=== PATIENT | female | born 1955 | race Caucasian/White ===

== ENCOUNTER → 2017-06-05 | Outpatient (CLI) | payer OTHER | END | disposition home or self-care (01) | LOC: CFH 07:35 | PROVIDERS: ATTEND Physician Assistant | DX: R16.1 Splenomegaly, not elsewhere classified (principal); K80.20 Calculus of gallbladder without cholecystitis without obstruction; N32.89 Other specified disorders of bladder | CPT/HCPCS: 76700 ==

== ENCOUNTER → 2017-08-14 | Outpatient (CLI) | payer OTHER ==
[~2017-08-14] MED LIST: BENA20TA2 PO; BUDE10.2 PO; CYCL-259 PO; HYDR-3240 PO; TRAZ50TA18 PO
[2017-08-14 16:41] LABS: HEMATOCRIT 42.3 % (34.6-47.8); HEMOGLOBIN 14.6 g/dL (11.7-16.4); WHITE BLOOD COUNT 4.3 x10^3/uL (3.4-10)
[2017-08-14 16:48] LABS: BLOOD UREA NITROGEN 16 mg/dL (7-18)
[2017-08-14 16:51] LABS: ASPARTATE AMINO TRANSFERASE 22 U/L (15-37)
== END | disposition home or self-care (01) ==
LOC: STAR 15:38
PROVIDERS: ATTEND Orthopaedic Surgery
DX: Z01.818 Encounter for other preprocedural examination (principal); M17.12 Unilateral primary osteoarthritis, left knee; R79.1 Abnormal coagulation profile
CPT/HCPCS: 36415; 80053; 83036; 85025; 85610; 85730; 87081; 87147; 93005

== ENCOUNTER 2020-11-19 09:37 | Inpatient (IN) | payer OTHER ==
[~2020-11-19] VITALS: Ht 170.2 cm; Wt 112.0 kg
[~2020-11-19 09:37] MED LIST changes: +ASPI-496 PO; -BENA20TA2 PO; +BENA20TA54 PO; -CYCL-259 PO; +CYCL10TA2 PO; +HYDR-1067 PO; -HYDR-3240 PO; +MELO7.5T31 PO; +ONDA4TAB7 PO; +OXYC5CAP2 PO; +TRAM50TA2 PO; -TRAZ50TA18 PO; +TRAZ50TA66 PO
[2020-11-19] MEDS ORDERED: SODIUM CHLORIDE 0.9% 1,000 ML IV ONE (10:30)
--- NOTE | 2020-11-19 10:51 | NUR ---
US AT BEDSIDE
[2020-11-19 11:04] LABS: BASOPHILS % (AUTO) 1 % (0-1); EOSINOPHILS % (AUTO) 4 % (1-7); LYMPHOCYTES % (AUTO) 6 % (22-44); MEAN CORPUSCULAR HEMOGLOBIN 30.8 pg (27.0-34.8); MEAN CORPUSCULAR HGB CONC 33.2 g/dL (32.4-35.8); MEAN PLATELET VOLUME 7.5 fL (7.4-10.4); MONOCYTES % (AUTO) 10 % (2-9); NEUTROPHILS % (AUTO) 79 % (42-75); PLATELET COUNT 161 x10^3/uL (130-400); RED BLOOD COUNT 2.42 x10^6/uL (3.82-5.3); RED CELL DISTRIBUTION WIDTH 15.2 % (9.6-15.2)
[2020-11-19 11:16] LABS: ALBUMIN 3.1 g/dL (3.4-5.0); ANION GAP 10 mmol/L (5-15); CALCIUM 8.3 mg/dL (8.5-10.1); CHLORIDE 115 mmol/L (98-107)
--- NOTE | 2020-11-19 11:16 | NUR ---
CRITICAL LAB: HEMATOCRIT 22.5
[2020-11-19 11:19] LABS: MD NO
[2020-11-19 11:23] LABS: ALANINE AMINOTRANSFERASE 9 U/L (12-78); ALKALINE PHOSPHATASE 53 U/L (45-117); BILIRUBIN,TOTAL 0.2 mg/dL (0.2-1.0); CREATININE 7.88 mg/dL (0.55-1.02); TOTAL PROTEIN 7.1 g/dL (6.4-8.2); TROPONIN I 0.082 ng/mL (0.000-0.045)
[2020-11-19 11:32] LABS: MICROSCOPIC NOT IND
[2020-11-19] MEDS ORDERED: SODIUM CHLORIDE FLUSH 10ML SYR IVF ONE (13:00)
[2020-11-19] MEDS ORDERED: CEFTRIAXONE PMX 1GM/50ML 50 ML IV ONE (13:00)
[2020-11-19] MEDS ORDERED: SODIUM BICARB 8.4%, 50ML SYRINGE IVPush ONE (13:00)
[2020-11-19] MEDS ORDERED: AZITHROMYCIN 500 MG in SODIUM CHLORIDE 0.9% 250 ML IV ONE (13:00)
[2020-11-19] MEDS ORDERED: ALBUTEROL 0.5%, 20ML NPPB ONE (13:00)
[2020-11-19] MEDS ORDERED: SODIUM ZIRCONIUM CYCLOSILICATE 10 GM PO ONE (13:00)
[2020-11-19] MEDS ORDERED: INSULIN REGULAR 100 UNITS/ML, 3ML VIAL IVPush ONE (13:00)
[2020-11-19] MEDS ORDERED: DEXTROSE 50%, 50ML SYRINGE IVPush ONE (13:00)
[2020-11-19] MEDS ORDERED: CEFTRIAXONE PMX 1GM/50ML 50 ML ONE (13:09)
[2020-11-19] MEDS ORDERED: INSULIN SINGLE DOSE, ER ONE (13:10)
[2020-11-19] MEDS ORDERED: ALBUTEROL SULFATE 2.5 MG/3 ML ONE (13:10)
[2020-11-19] MEDS ORDERED: DEXTROSE 50%, 50ML SYRINGE ONE (13:10)
[2020-11-19] MEDS ORDERED: SODIUM BICARB 8.4%, 50ML SYRINGE ONE (13:11)
--- NOTE | 2020-11-19 13:24 | NUR ---
PER DR. LOUIE, BLOOD CULTURES NOT NEEDED PRIOR TO INITIATION OF ANTIBIOTIC TX.
--- NOTE | 2020-11-19 13:39 | NUR ---
Piotr requested from pharmacy. Pt to CT at this time via gurney, then will be up to floor with vascular technologist. Meds will be tubed to receiving floor.
[2020-11-19] MEDS ORDERED: ACETAMINOPHEN 325 MG TABLET PO PRN (14:00)
[2020-11-19] MEDS ORDERED: ENALAPRILAT 1.25 MG/ML, 2ML IVPush PRN (14:00)
[2020-11-19] MEDS ORDERED: ONDANSETRON ODT 4 MG PO PRN (14:00)
[2020-11-19] MEDS ORDERED: morphine SULFATE 10 MG/ML, 1ML IVPush PRN (14:00)
[2020-11-19] MEDS ORDERED: ONDANSETRON 2MG/ML, 2ML IVPush PRN (14:00)
[2020-11-19 15:33] VITALS: BP 157/82
[2020-11-19 15:58] LABS: ABSOLUTE RETICS # 0.043 x10^6/uL (0.5-2.5); RED BLOOD COUNT 2.16 x10^6/uL (3.82-5.3); RETICULOCYTE COUNT % 1.99 % (0.5-1.5)
[2020-11-19 16:02] LABS: CALCIUM 7.8 mg/dL (8.5-10.1)
[2020-11-19] MEDS ORDERED: TAMS-11 PO (18:28)
[2020-11-19] MEDS ORDERED: HYDR-3237 PO (18:28)
[2020-11-19] MEDS ORDERED: TRAZ-96 PO (18:28)
[2020-11-19] MEDS ORDERED: AMLO-210 PO (18:28)
[2020-11-19] MEDS ORDERED: CARV12.52 PO (18:28)
[2020-11-19 18:39] LABS: MICROSCOPIC AUTO
[2020-11-19 18:42] LABS: CHLORIDE,URINE RANDOM 52 mmol/L; POTASSIUM,URINE RANDOM 13 mmol/L; SODIUM,URINE RANDOM 58 mmol/L
[2020-11-19 18:50] VITALS: BP 114/74
[2020-11-19] MEDS ORDERED: MIDAZOLAM 1 MG/ML, 5ML ONE (19:16)
[2020-11-19] MEDS ORDERED: NALOXONE 1 MG/ML, 2ML ONE (19:16)
[2020-11-19] MEDS ORDERED: FLUMAZENIL 0.1 MG/1 ML, 5ML ONE (19:16)
[2020-11-19] MEDS ORDERED: FENTANYL PF 100 MCG/2ML ONE (19:16)
[2020-11-19] MEDS ORDERED: LIDOCAINE 1%, 10ML ONE (19:17)
[2020-11-19] MEDS ORDERED: LIDOCAINE 1%, 20ML ONE (19:44)
[2020-11-19] MEDS ORDERED: VISIPAQUE 320MG/ML, 50ML BOTTLE ONE (20:03)
[2020-11-20 01:04] VITALS: BP 125/86
[2020-11-20 05:22] LABS: BASOPHILS % (AUTO) 1 % (0-1); EOSINOPHILS % (AUTO) 4 % (1-7); LYMPHOCYTES % (AUTO) 6 % (22-44); MEAN CORPUSCULAR HEMOGLOBIN 31.1 pg (27.0-34.8); MEAN CORPUSCULAR HGB CONC 33.3 g/dL (32.4-35.8); MEAN PLATELET VOLUME 7.5 fL (7.4-10.4); MONOCYTES % (AUTO) 11 % (2-9); NEUTROPHILS % (AUTO) 78 % (42-75); PLATELET COUNT 162 x10^3/uL (130-400); RED BLOOD COUNT 2.39 x10^6/uL (3.82-5.3)
[2020-11-20 05:25] LABS: MD NO
[2020-11-20 05:32] LABS: CHLORIDE 116 mmol/L (98-107)
[2020-11-20 05:38] LABS: ALANINE AMINOTRANSFERASE 9 U/L (12-78); ALBUMIN 2.8 g/dL (3.4-5.0); ALKALINE PHOSPHATASE 52 U/L (45-117); ANION GAP 7 mmol/L (5-15); BILIRUBIN,TOTAL 0.2 mg/dL (0.2-1.0); CREATININE 6.69 mg/dL (0.55-1.02); TOTAL PROTEIN 6.4 g/dL (6.4-8.2)
[2020-11-20 07:44] VITALS: BP 137/81
[2020-11-20] MEDS: IRON SUCROSE COMPLEX 100MG/5ML IV SCH (11:25)
[2020-11-20] MEDS: FLUTICASONE/VILANTEROL 200-25MCG/INH INH SCH (12:00)
[2020-11-20 12:45] VITALS: BP 156/84
[2020-11-20] MEDS: HYDROcodone/APAP 5/325 TABLET PO PRN ×2 (12:58→21:05)
[2020-11-20 20:24] VITALS: BP 155/81
[2020-11-20] MEDS: SODIUM BICARBONATE 650 MG TABLET PO SCH (21:01)
[2020-11-21] MEDS ORDERED: LACTATED RINGERS 500 ML IVBOLUS ONE
[2020-11-21 02:36] VITALS: BP 161/85
[2020-11-21 05:49] LABS: BASOPHILS % (AUTO) 1 % (0-1); EOSINOPHILS % (AUTO) 4 % (1-7); LYMPHOCYTES % (AUTO) 6 % (22-44); MEAN CORPUSCULAR HEMOGLOBIN 31.2 pg (27.0-34.8); MEAN CORPUSCULAR HGB CONC 33.4 g/dL (32.4-35.8); MEAN PLATELET VOLUME 7.5 fL (7.4-10.4); MONOCYTES % (AUTO) 12 % (2-9); NEUTROPHILS % (AUTO) 78 % (42-75); PLATELET COUNT 160 x10^3/uL (130-400); RED BLOOD COUNT 2.51 x10^6/uL (3.82-5.3); RED CELL DISTRIBUTION WIDTH 15.3 % (9.6-15.2)
[2020-11-21 05:53] LABS: MD NO
[2020-11-21 05:57] LABS: ALBUMIN 2.9 g/dL (3.4-5.0); ANION GAP 6 mmol/L (5-15); CALCIUM 8.5 mg/dL (8.5-10.1); CHLORIDE 110 mmol/L (98-107)
[2020-11-21 06:01] LABS: ALANINE AMINOTRANSFERASE 9 U/L (12-78); ALKALINE PHOSPHATASE 53 U/L (45-117); BILIRUBIN,TOTAL 0.2 mg/dL (0.2-1.0); CREATININE 5.72 mg/dL (0.55-1.02); TOTAL PROTEIN 6.8 g/dL (6.4-8.2)
[2020-11-21] MEDS: SODIUM BICARBONATE 650 MG TABLET PO SCH ×2 (08:22→19:58)
[2020-11-21] MEDS: HYDROcodone/APAP 5/325 TABLET PO PRN ×2 (08:22→19:58)
[2020-11-21] MEDS: SODIUM CHLORIDE 0.45% 1,000 ML IV SCH ×2 (08:23→18:26)
[2020-11-21 08:30] VITALS: BP 147/87
[2020-11-21] MEDS: FLUTICASONE/VILANTEROL 200-25MCG/INH INH SCH (08:41)
[2020-11-21] MEDS ORDERED: FUROSEMIDE 40 MG/4 ML IV ONE (09:00)
[2020-11-21] MEDS: ERGOCALCIFEROL 50,000 UNIT CAPSULE PO SCH (09:32)
[2020-11-21] MEDS: SODIUM ZIRCONIUM CYCLOSILICATE 5 GM PO SCH ×3 (11:42→23:27)
[2020-11-21 13:10] VITALS: BP 128/83
[2020-11-21 14:07] LABS: ANION GAP 5 mmol/L (5-15); CALCIUM 8.3 mg/dL (8.5-10.1); CHLORIDE 109 mmol/L (98-107); CREATININE 5.65 mg/dL (0.55-1.02)
[2020-11-21 19:30] VITALS: BP 144/83
[2020-11-22 01:38] VITALS: BP 145/83
[2020-11-22] MEDS: ALBUTEROL HFA 90 MCG/SPRAY INH PRN (02:38)
[2020-11-22] MEDS: SODIUM CHLORIDE 0.45% 1,000 ML IV SCH ×2 (04:54→14:59)
[2020-11-22 05:25] LABS: BASOPHILS % (AUTO) 1 % (0-1); EOSINOPHILS % (AUTO) 6 % (1-7); LYMPHOCYTES % (AUTO) 8 % (22-44); MEAN CORPUSCULAR HEMOGLOBIN 31.4 pg (27.0-34.8); MEAN CORPUSCULAR HGB CONC 33.9 g/dL (32.4-35.8); MEAN PLATELET VOLUME 7.4 fL (7.4-10.4); MONOCYTES % (AUTO) 10 % (2-9); NEUTROPHILS % (AUTO) 75 % (42-75); PLATELET COUNT 164 x10^3/uL (130-400); RED BLOOD COUNT 2.47 x10^6/uL (3.82-5.3)
[2020-11-22 05:31] LABS: ALBUMIN 2.9 g/dL (3.4-5.0); CALCIUM 8.1 mg/dL (8.5-10.1); CHLORIDE 108 mmol/L (98-107)
[2020-11-22 05:36] LABS: ALANINE AMINOTRANSFERASE 7 U/L (12-78); ALKALINE PHOSPHATASE 54 U/L (45-117); ANION GAP 8 mmol/L (5-15); BILIRUBIN,TOTAL 0.2 mg/dL (0.2-1.0); CREATININE 4.81 mg/dL (0.55-1.02); TOTAL PROTEIN 6.8 g/dL (6.4-8.2)
[2020-11-22 05:43] LABS: MD NO
[2020-11-22] MEDS: FLUTICASONE/VILANTEROL 200-25MCG/INH INH SCH (08:00)
[2020-11-22] MEDS: SODIUM ZIRCONIUM CYCLOSILICATE 5 GM PO SCH ×3 (08:04→22:57)
[2020-11-22] MEDS: SODIUM BICARBONATE 650 MG TABLET PO SCH ×2 (08:05→20:39)
[2020-11-22] MEDS: IRON SUCROSE COMPLEX 100MG/5ML IV SCH (08:05)
[2020-11-22 08:09] VITALS: BP 159/87
[2020-11-22 12:15] VITALS: BP 150/92
[2020-11-22 19:09] VITALS: BP 147/80
[2020-11-22] MEDS: HYDROcodone/APAP 5/325 TABLET PO PRN (20:40)
[2020-11-23] MEDS: SODIUM CHLORIDE 0.45% 1,000 ML IV SCH ×3 (01:03→21:15)
[2020-11-23 02:00] VITALS: BP 143/76
[2020-11-23] MEDS: HYDROcodone/APAP 5/325 TABLET PO PRN (03:16)
[2020-11-23 05:35] LABS: ANION GAP 7 mmol/L (5-15); CALCIUM 7.5 mg/dL (8.5-10.1); CHLORIDE 108 mmol/L (98-107); CREATININE 4.14 mg/dL (0.55-1.02)
[2020-11-23] MEDS ORDERED: MAGNESIUM SULFATE PMX 2GM/50ML 50 ML IV ONE (07:30)
[2020-11-23 08:19] VITALS: BP 137/73
[2020-11-23] MEDS: SODIUM BICARBONATE 650 MG TABLET PO SCH ×2 (08:24→21:18)
[2020-11-23] MEDS: SODIUM ZIRCONIUM CYCLOSILICATE 5 GM PO SCH ×3 (08:24→22:59)
[2020-11-23] MEDS: FLUTICASONE/VILANTEROL 200-25MCG/INH INH SCH (09:00)
[2020-11-23 13:04] VITALS: BP 159/87
[2020-11-23 13:21] VITALS: BP 137/75
[2020-11-23] MEDS ORDERED: NALOXONE 1 MG/ML, 2ML ONE (18:10)
[2020-11-23] MEDS ORDERED: FENTANYL PF 100 MCG/2ML ONE (18:10)
[2020-11-23 19:33] VITALS: BP 164/83
[2020-11-23] MEDS: OXYBUTYNIN CHLORIDE 5 MG TABLET PO SCH (21:15)
[2020-11-24] MEDS: SODIUM CHLORIDE 0.45% 1,000 ML IV SCH ×2 (00:04→10:36)
[2020-11-24 00:59] VITALS: BP 151/73
[2020-11-24 05:36] LABS: BASOPHILS % (AUTO) 3 % (0-1); EOSINOPHILS % (AUTO) 5 % (1-7); LYMPHOCYTES % (AUTO) 11 % (22-44); MD NO; MEAN CORPUSCULAR HEMOGLOBIN 30.9 pg (27.0-34.8); MEAN CORPUSCULAR HGB CONC 33.8 g/dL (32.4-35.8); MEAN PLATELET VOLUME 7.2 fL (7.4-10.4); MONOCYTES % (AUTO) 12 % (2-9); NEUTROPHILS % (AUTO) 70 % (42-75); PLATELET COUNT 179 x10^3/uL (130-400); RED BLOOD COUNT 2.61 x10^6/uL (3.82-5.3); RED CELL DISTRIBUTION WIDTH 14.1 % (9.6-15.2)
[2020-11-24 05:45] LABS: ANION GAP 8 mmol/L (5-15); CALCIUM 8.3 mg/dL (8.5-10.1); CHLORIDE 110 mmol/L (98-107); CREATININE 3.64 mg/dL (0.55-1.02)
[2020-11-24 07:15] VITALS: BP 150/88
[2020-11-24] MEDS: FLUTICASONE/VILANTEROL 200-25MCG/INH INH SCH (07:49)
[2020-11-24] MEDS: HYDROcodone/APAP 5/325 TABLET PO PRN ×2 (08:09→21:08)
[2020-11-24] MEDS: OXYBUTYNIN CHLORIDE 5 MG TABLET PO SCH ×2 (08:13→21:06)
[2020-11-24] MEDS: SODIUM BICARBONATE 650 MG TABLET PO SCH ×2 (08:13→21:06)
[2020-11-24] MEDS: IRON SUCROSE COMPLEX 100MG/5ML IV SCH (08:13)
[2020-11-24] MEDS: ALBUTEROL HFA 90 MCG/SPRAY INH PRN (10:36)
[2020-11-24 12:08] VITALS: BP 153/84
[2020-11-24] MEDS: AMLODIPINE 2.5 MG TABLET PO SCH (12:43)
[2020-11-24] MEDS: methylPREDNISolone SOD SUCC 40 MG/ML IV SCH (17:24)
[2020-11-24] MEDS: CEFTRIAXONE PMX 1GM/50ML 50 ML IV SCH (17:24)
[2020-11-24 18:43] VITALS: BP 118/81
[2020-11-24] MEDS: DOXYCYCLINE 100MG TABLET PO SCH (21:08)
[2020-11-25] MEDS: methylPREDNISolone SOD SUCC 40 MG/ML IV SCH ×3 (00:16→16:41)
[2020-11-25] MEDS: SODIUM CHLORIDE 0.45% 1,000 ML IV SCH ×2 (00:17→10:51)
[2020-11-25 00:44] VITALS: BP 126/67
[2020-11-25 05:30] LABS: BASOPHILS % (AUTO) 1 % (0-1); EOSINOPHILS % (AUTO) 0 % (1-7); LYMPHOCYTES % (AUTO) 6 % (22-44); MEAN CORPUSCULAR HEMOGLOBIN 30.8 pg (27.0-34.8); MEAN CORPUSCULAR HGB CONC 33.5 g/dL (32.4-35.8); MEAN PLATELET VOLUME 7.2 fL (7.4-10.4); MONOCYTES % (AUTO) 4 % (2-9); NEUTROPHILS % (AUTO) 89 % (42-75); PLATELET COUNT 210 x10^3/uL (130-400); RED BLOOD COUNT 2.71 x10^6/uL (3.82-5.3); RED CELL DISTRIBUTION WIDTH 14.2 % (9.6-15.2)
[2020-11-25 05:33] LABS: MD NO
[2020-11-25 05:44] LABS: ANION GAP 7 mmol/L (5-15); CALCIUM 8.5 mg/dL (8.5-10.1); CHLORIDE 108 mmol/L (98-107); CREATININE 3.18 mg/dL (0.55-1.02)
[2020-11-25] MEDS: HYDROcodone/APAP 5/325 TABLET PO PRN ×2 (06:40→20:27)
[2020-11-25 07:35] VITALS: BP 151/84
[2020-11-25] MEDS: OXYBUTYNIN CHLORIDE 5 MG TABLET PO SCH ×2 (09:03→20:27)
[2020-11-25] MEDS: DOXYCYCLINE 100MG TABLET PO SCH ×2 (09:03→20:27)
[2020-11-25] MEDS: SODIUM BICARBONATE 650 MG TABLET PO SCH ×2 (09:03→20:27)
[2020-11-25] MEDS: AMLODIPINE 2.5 MG TABLET PO SCH (09:03)
[2020-11-25] MEDS: FLUTICASONE/VILANTEROL 200-25MCG/INH INH SCH (09:03)
[2020-11-25 13:39] VITALS: BP 129/81
[2020-11-25] MEDS: CEFTRIAXONE PMX 1GM/50ML 50 ML IV SCH (16:41)
[2020-11-25 20:15] VITALS: BP 133/83
[2020-11-26 00:39] VITALS: BP 148/83
[2020-11-26] MEDS: methylPREDNISolone SOD SUCC 40 MG/ML IV SCH ×3 (00:39→16:38)
[2020-11-26] MEDS: SODIUM CHLORIDE 0.45% 1,000 ML IV SCH ×2 (04:40→22:56)
[2020-11-26 05:51] LABS: ANION GAP 6 mmol/L (5-15); CALCIUM 8.5 mg/dL (8.5-10.1); CHLORIDE 108 mmol/L (98-107)
[2020-11-26 05:53] LABS: CREATININE 2.83 mg/dL (0.55-1.02)
[2020-11-26 05:54] LABS: BASOPHILS % (AUTO) 1 % (0-1); EOSINOPHILS % (AUTO) 0 % (1-7); LYMPHOCYTES % (AUTO) 5 % (22-44); MEAN CORPUSCULAR HGB CONC 34.1 g/dL (32.4-35.8); MEAN PLATELET VOLUME 7.7 fL (7.4-10.4); MONOCYTES % (AUTO) 4 % (2-9); NEUTROPHILS % (AUTO) 91 % (42-75); PLATELET COUNT 212 x10^3/uL (130-400); RED BLOOD COUNT 2.61 x10^6/uL (3.82-5.3)
[2020-11-26] MEDS: HYDROcodone/APAP 5/325 TABLET PO PRN ×2 (06:19→20:47)
[2020-11-26 06:44] LABS: MD SCAN
[2020-11-26 07:39] VITALS: BP 126/81
[2020-11-26] MEDS: FLUTICASONE/VILANTEROL 200-25MCG/INH INH SCH (09:00)
[2020-11-26] MEDS: AMLODIPINE 2.5 MG TABLET PO SCH (09:05)
[2020-11-26] MEDS: IRON SUCROSE COMPLEX 100MG/5ML IV SCH (09:05)
[2020-11-26] MEDS: OXYBUTYNIN CHLORIDE 5 MG TABLET PO SCH ×2 (09:05→20:47)
[2020-11-26] MEDS: DOXYCYCLINE 100MG TABLET PO SCH ×2 (09:06→20:47)
[2020-11-26] MEDS: SODIUM BICARBONATE 650 MG TABLET PO SCH ×2 (09:06→20:47)
[2020-11-26] MEDS ORDERED: MAGNESIUM SULFATE PMX 2GM/50ML 50 ML IV ONE (12:00)
[2020-11-26 15:17] VITALS: BP 143/80
[2020-11-26] MEDS: CEFTRIAXONE PMX 1GM/50ML 50 ML IV SCH (16:38)
[2020-11-26 19:02] VITALS: BP 129/85
[2020-11-27] VITALS (7 sets, daily range): BP systolic 119–180; BP diastolic 71–98
[2020-11-27] MEDS: methylPREDNISolone SOD SUCC 40 MG/ML IV SCH ×2 (00:20→08:31)
[2020-11-27 05:45] LABS: BASOPHILS % (AUTO) 1 % (0-1); EOSINOPHILS % (AUTO) 0 % (1-7); LYMPHOCYTES % (AUTO) 5 % (22-44); MEAN CORPUSCULAR HEMOGLOBIN 30.8 pg (27.0-34.8); MEAN CORPUSCULAR HGB CONC 33.6 g/dL (32.4-35.8); MEAN PLATELET VOLUME 7.3 fL (7.4-10.4); MONOCYTES % (AUTO) 6 % (2-9); NEUTROPHILS % (AUTO) 89 % (42-75); PLATELET COUNT 227 x10^3/uL (130-400); RED BLOOD COUNT 2.84 x10^6/uL (3.82-5.3); RED CELL DISTRIBUTION WIDTH 14.3 % (9.6-15.2)
[2020-11-27 05:51] LABS: MD NO
[2020-11-27 05:55] LABS: ANION GAP 6 mmol/L (5-15); CALCIUM 8.5 mg/dL (8.5-10.1); CHLORIDE 108 mmol/L (98-107); CREATININE 2.65 mg/dL (0.55-1.02)
[2020-11-27 05:56] LABS: ALBUMIN 2.8 g/dL (3.4-5.0)
[2020-11-27] MEDS: AMLODIPINE 2.5 MG TABLET PO SCH (08:31)
[2020-11-27] MEDS: DOXYCYCLINE 100MG TABLET PO SCH ×2 (08:31→20:14)
[2020-11-27] MEDS: SODIUM BICARBONATE 650 MG TABLET PO SCH ×2 (08:31→20:15)
[2020-11-27] MEDS: OXYBUTYNIN CHLORIDE 5 MG TABLET PO SCH ×2 (08:31→20:15)
[2020-11-27] MEDS: FLUTICASONE/VILANTEROL 200-25MCG/INH INH SCH (08:55)
[2020-11-27] MEDS: HYDROcodone/APAP 5/325 TABLET PO PRN ×2 (09:24→20:21)
[2020-11-27] MEDS: MAGNESIUM OXIDE 400 MG TABLET PO SCH ×2 (11:40→20:15)
[2020-11-27] MEDS: HEPARIN 5,000 UNITS/ML, 1ML SQ SCH (11:41)
[2020-11-27] MEDS: CEFTRIAXONE PMX 1GM/50ML 50 ML IV SCH (16:25)
[2020-11-28] MEDS: HEPARIN 5,000 UNITS/ML, 1ML SQ SCH ×2 (00:07→11:59)
[2020-11-28 00:22] VITALS: BP 155/78
[2020-11-28 05:36] LABS: BASOPHILS % (AUTO) 2 % (0-1); EOSINOPHILS % (AUTO) 3 % (1-7); LYMPHOCYTES % (AUTO) 15 % (22-44); MEAN CORPUSCULAR HEMOGLOBIN 30.8 pg (27.0-34.8); MEAN CORPUSCULAR HGB CONC 33.5 g/dL (32.4-35.8); MEAN PLATELET VOLUME 7.5 fL (7.4-10.4); MONOCYTES % (AUTO) 14 % (2-9); NEUTROPHILS % (AUTO) 66 % (42-75); PLATELET COUNT 239 x10^3/uL (130-400); RED BLOOD COUNT 3.03 x10^6/uL (3.82-5.3); RED CELL DISTRIBUTION WIDTH 14.5 % (9.6-15.2)
[2020-11-28 05:37] LABS: MD NO
[2020-11-28 05:41] LABS: CHLORIDE 107 mmol/L (98-107)
[2020-11-28 05:50] LABS: ALANINE AMINOTRANSFERASE 44 U/L (12-78); ALBUMIN 2.8 g/dL (3.4-5.0); ALKALINE PHOSPHATASE 47 U/L (45-117); ANION GAP 9 mmol/L (5-15); BILIRUBIN,TOTAL 0.2 mg/dL (0.2-1.0); CALCIUM 8.3 mg/dL (8.5-10.1); CREATININE 2.52 mg/dL (0.55-1.02); TOTAL PROTEIN 6.3 g/dL (6.4-8.2)
[2020-11-28 07:27] VITALS: BP 151/98
[2020-11-28] MEDS: MAGNESIUM OXIDE 400 MG TABLET PO SCH (08:17)
[2020-11-28] MEDS: OXYBUTYNIN CHLORIDE 5 MG TABLET PO SCH (08:17)
[2020-11-28] MEDS: DOXYCYCLINE 100MG TABLET PO SCH (08:18)
[2020-11-28] MEDS: SODIUM BICARBONATE 650 MG TABLET PO SCH (08:18)
[2020-11-28] MEDS: HYDROcodone/APAP 5/325 TABLET PO PRN (08:19)
[2020-11-28] MEDS ORDERED: AMLODIPINE 5 MG TABLET PO SCH (09:00)
[2020-11-28] MEDS ORDERED: methylPREDNISolone SOD SUCC 40 MG/ML IV SCH (09:00)
[2020-11-28] MEDS: FLUTICASONE/VILANTEROL 200-25MCG/INH INH SCH (09:02)
[2020-11-28] MEDS: ERGOCALCIFEROL 50,000 UNIT CAPSULE PO SCH (09:09)
[2020-11-28 12:04] VITALS: BP 151/89
[2020-11-28] MEDS ORDERED: ERGO500017 PO (12:53)
[2020-11-28] MEDS ORDERED: TRAZ50TA66 PO (12:53)
[2020-11-28] MEDS ORDERED: OXYB5TAB10 PO (12:53)
[2020-11-28] MEDS ORDERED: FLUT1BLS INH (12:53)
[2020-11-28] MEDS ORDERED: SODI650T PO (12:53)
[2020-11-28] MEDS ORDERED: DOXY100T PO (12:53)
[2020-11-28] MEDS ORDERED: CARV12.52 PO (12:53)
[2020-11-28] MEDS ORDERED: MAGN400T50 PO (12:53)
== END 2020-11-28 16:00 | disposition home health service (06) | DRG 698 ==
LOC: ED 12:04 → EDIP 12:42 → 4EST 14:13 → DCLOUNGE 11-28 15:46
PROVIDERS: ADMIT Hospitalist; ATTEND Internal Medicine
PROC: 0T9B30Z Drainage of Bladder with Drainage Device, Percutaneous Approach (ICD-10-PCS; principal; 2020-11-19)
PROC: BT101ZZ Fluoroscopy of Bladder using Low Osmolar Contrast (ICD-10-PCS; 2020-11-19)
PROC: BT40ZZZ Ultrasonography of Bladder (ICD-10-PCS; 2020-11-19)
PROC: BT40ZZZ Ultrasonography of Bladder (ICD-10-PCS; 2020-11-23)
PROC: 0TWBX0Z Revision of Drainage Device in Bladder, External Approach (ICD-10-PCS; 2020-11-23)
DX: N32.0 Bladder-neck obstruction (principal); J18.9 Pneumonia, unspecified organism; N17.9 Acute kidney failure, unspecified; N13.30 Unspecified hydronephrosis; E87.2 Acidosis; C95.90 Leukemia, unspecified not having achieved remission; J44.1 Chronic obstructive pulmonary disease with (acute) exacerbation; J44.0 Chronic obstructive pulmonary disease with (acute) lower respiratory infection; T83.030A Leakage of cystostomy catheter, initial encounter; N31.9 Neuromuscular dysfunction of bladder, unspecified; Y73.8 Miscellaneous gastroenterology and urology devices associated with adverse incidents, not elsewhere classified; Y92.238 Other place in hospital as the place of occurrence of the external cause; I12.9 Hypertensive chronic kidney disease with stage 1 through stage 4 chronic kidney disease, or unspecified chronic kidney disease; N18.9 Chronic kidney disease, unspecified; E55.9 Vitamin D deficiency, unspecified; Z66 Do not resuscitate; D50.9 Iron deficiency anemia, unspecified; E66.9 Obesity, unspecified; E87.5 Hyperkalemia; R00.0 Tachycardia, unspecified; Z96.652 Presence of left artificial knee joint; Z87.891 Personal history of nicotine dependence; Z80.1 Family history of malignant neoplasm of trachea, bronchus and lung; Z85.41 Personal history of malignant neoplasm of cervix uteri; Z90.49 Acquired absence of other specified parts of digestive tract; Z82.5 Family history of asthma and other chronic lower respiratory diseases; Z68.38 Body mass index [BMI] 38.0-38.9, adult; Z86.19 Personal history of other infectious and parasitic diseases
CPT/HCPCS: 36415; 75989; 76000; 96374; 99291; J3490; 51703; 71045; 71046; 74176; 76770; 80048; 80053; 80069; 81001; 81003; 82306; 82310; 82436; 82728; 83540; 83550; 83735; 83880; 83970; 84100; 84133; 84300; 84484; 85025; 85045; 93005; 94640; C1725; C1894; G0378; J0456; J0696; J1644; J1756; J1815; J1940; J2250; J2405; J3010; J7120; Q9967; C1769; J2310; J2920; J3475; J7030; J7050

== ENCOUNTER 2020-12-23 17:45 | Emergency (ER) | payer OTHER ==
[~2020-12-23] VITALS: Ht 170.2 cm; Wt 110.5 kg
[~2020-12-23 17:45] MED LIST changes: +AMLO-210 PO; +CARV12.52 PO; +DOXY100T PO; +ERGO500017 PO; +FLUT1BLS INH; -HYDR-1067 PO; +HYDR-2214 PO; +HYDR-3237 PO; +MAGN400T50 PO; +OXYB5TAB10 PO; +SODI650T PO; +TAMS-11 PO; +TRAZ-96 PO
--- NOTE | 2020-12-23 18:11 | NUR ---
cc of supra pubic catheter changed today and not draining. pt states "it doesn't feel like it's in the right place". md at bedside with US.
--- NOTE | 2020-12-23 19:05 | NUR ---
PT TO IR. UNABLE TO PLACE IV. IR WILL ATTEMPT
[2020-12-23] MEDS ORDERED: FENTANYL PF 100 MCG/2ML ONE (19:10)
[2020-12-23] MEDS ORDERED: LIDOCAINE 1%, 20ML ONE (19:25)
[2020-12-23] MEDS ORDERED: ONDANSETRON 2MG/ML, 2ML IVPush ONE (20:00)
[2020-12-23] MEDS ORDERED: ONDANSETRON 2MG/ML, 2ML ONE (20:03)
[2020-12-23 20:05] VITALS: BP 152/74
--- NOTE | 2020-12-23 20:08 | NUR ---
BACK FROM IR. REPORT OF OLD TRACT CLOSING, NEW TRACK MADE AND CATHETER PLACED. IR PLACED 22 IN RIGHT HAND, GAVE 150 MG FENTANYL. PT C/O NAUSEA. DR RICHTER UPDATED, PLACED ORDERS FOR ZOFRAN. PT TO BE DC'D HOME.
== END 2020-12-23 20:26 | disposition home or self-care (01) ==
LOC: ED 18:34
DX: R33.9 Retention of urine, unspecified (principal); N19 Unspecified kidney failure; I10 Essential (primary) hypertension
CPT/HCPCS: 51102; 75989; 76942; 96374; 99284; C1725; C1769; J2405; J3010; J3490